=== PATIENT | female | born 1960 | race African-American/Black ===

== ENCOUNTER 2023-11-24 14:00 | Emergency (ER) | payer MEDICAID ==
[~2023-11-24] VITALS: Ht 157.5 cm; Wt 59.0 kg
[2023-11-24 14:11] VITALS: BP 183/100; PULSE 92; RESP 20; TEMP 99.9; O2SAT 97
[2023-11-24] MEDS ORDERED: ACETAMINOPHEN 325MG TABLET PO ONE (15:00)
[2023-11-24] MEDS: ACETAMINOPHEN 325MG TABLET PO NR (17:21)
[2023-11-24] MEDS ORDERED: TOPUD MT (18:53)
== END 2023-11-24 20:53 | disposition home or self-care (01) ==
LOC: ER 14:19
DX: S82.852A Displaced trimalleolar fracture of left lower leg, initial encounter for closed fracture (principal); W22.8XXA Striking against or struck by other objects, initial encounter; Y93.89 Activity, other specified; Y92.89 Other specified places as the place of occurrence of the external cause; Y99.8 Other external cause status
CPT/HCPCS: 73590; 73610; 73630; 29515; 99284; Z7610